=== PATIENT | female | born 2000 | race African-American/Black ===

== ENCOUNTER 2022-08-21 21:34 | Emergency (ER) | payer BC, SELFPAY | END 2022-08-21 23:17 | disposition home or self-care (01) | LOC: ERS 21:34 | DX: U07.1 COVID-19 (principal) | CPT/HCPCS: 71045 ==

== ENCOUNTER 2023-02-14 23:36 | Emergency (ER) | payer SELFPAY | END 2023-02-15 02:25 | disposition home or self-care (01) | LOC: ERS 23:36 | DX: M79.674 Pain in right toe(s) (principal) ==

== ENCOUNTER 2024-03-31 00:23 | Emergency (ER) | payer BC, OTHER ==
[2024-03-31] MEDS ORDERED: Ibuprofen 200 MG TAB ONE (01:47)
[2024-03-31] MEDS ORDERED: Boostrix 0.5 ML (Tdap) VIAL (>/=7 yrs of age) ONE (01:47)
[2024-03-31] MEDS ORDERED: Amoxicillin/Potassium Clav 875 MG TAB ONE (01:47)
== END 2024-03-31 02:10 | disposition home or self-care (01) ==
LOC: ERS 00:23
DX: S61.451A Open bite of right hand, initial encounter (principal); W54.0XXA Bitten by dog, initial encounter
CPT/HCPCS: 90471; 90715